=== PATIENT | female | born 1995 | race Caucasian/White ===

== ENCOUNTER 2018-10-02 09:42 | Inpatient (IN) | payer OTHER ==
[~2018-10-02] VITALS: Ht 152.4 cm; Wt 120.0 kg
--- NOTE | 2018-10-02 09:50 | NUR ---
SE RECIBE PTE ALERTA Y ORIENTADA X 3 ESFERAS, LA CUAL LLEGA EN AMBULANCIA POR FIEBRE HACE 5 CRUZ, AL MOMENTO SIN FIEBRE. PTE LLEGA CANALIZADA EN BRAZO LT. SE UBICA EN AREA DE OBSERVACION.
--- NOTE | 2018-10-02 10:02 | NUR ---
PTE EVALUADA POR EL DR CHUNG QUIEN ORDENA EL [place]. MS P ORTIZ ORIENTA SOBRE EL MISMO, LO CUAL REFIERE ENTENDER, REALIZA PRUEBAS DE LABORATORIO Y ADMINISTRA MEDICAMENTO JOVITA ORDEN MEDICA Y SIGUIENDO MEDIDAS ASEPTICAS.
[2018-10-13] MEDS ORDERED: DOXYCYCLINE HY100 MG PO (11:48)
[2018-10-13] MEDS ORDERED: INTESTINEX680 M1 PO (11:49)
== END 2018-10-13 13:30 | disposition home or self-care (01) | DRG 186 ==
LOC: ER 09:42 → MEDI 21:39 → MEDJ 10-03 14:33
PROVIDERS: ADMIT Internal Medicine
PROC: BW24ZZZ Computerized Tomography (CT Scan) of Chest and Abdomen (ICD-10-PCS; principal; 2018-10-02)
PROC: BW4GZZZ Ultrasonography of Pelvic Region (ICD-10-PCS; 2018-10-03)
PROC: BW40ZZZ Ultrasonography of Abdomen (ICD-10-PCS; 2018-10-03)
PROC: B246ZZZ Ultrasonography of Right and Left Heart (ICD-10-PCS; 2018-10-05)
PROC: BW21ZZZ Computerized Tomography (CT Scan) of Abdomen and Pelvis (ICD-10-PCS; 2018-10-05)
PROC: CF1C1ZZ Planar Nuclear Medicine Imaging of Hepatobiliary System, All using Technetium 99m (Tc-99m) (ICD-10-PCS; 2018-10-06)
PROC: CW1NLZZ Planar Nuclear Medicine Imaging of Whole Body using Gallium 67 (Ga-67) (ICD-10-PCS; 2018-10-06)
DX: J90 Pleural effusion, not elsewhere classified (principal); N17.0 Acute kidney failure with tubular necrosis; R65.10 Systemic inflammatory response syndrome (SIRS) of non-infectious origin without acute organ dysfunction; E27.49 Other adrenocortical insufficiency; N10 Acute pyelonephritis; N04.8 Nephrotic syndrome with other morphologic changes; G47.09 Other insomnia